=== PATIENT | female | born 2000 | race Hispanic/Latino ===

== ENCOUNTER 2020-04-26 18:50 | Emergency (ER) | payer OTHER ==
[~2020-04-26] VITALS: Ht 162.6 cm; Wt 57.7 kg
[2020-04-26 18:50] VITALS: BP 119/70
[2020-04-26] MEDS ORDERED: AMOX500C PO (19:01)
[2020-04-26] MEDS ORDERED: LIDOCAINE 1% MDV 20ML VIAL SC ONE (21:00)
[2020-04-26] MEDS ORDERED: CEPHALEXIN 500 MG CAP PO ONE (21:15)
[2020-04-26] MEDS ORDERED: CEPH500C PO (21:15)
[2020-04-26] MEDS ORDERED: NAPROXEN 250 MG TAB PO ONE (21:15)
[2020-04-26] MEDS ORDERED: NAPR-837 PO (21:15)
== END 2020-04-26 21:28 | disposition home or self-care (01) ==
LOC: M ED 18:50
DX: L72.3 Sebaceous cyst (principal)

== ENCOUNTER 2020-06-13 09:12 | Emergency (ER) | payer OTHER ==
[~2020-06-13] VITALS: Ht 162.6 cm; Wt 56.3 kg
[~2020-06-13 09:12] MED LIST: AMOX500C PO; CEPH500C PO; NAPR-837 PO
[2020-06-13] MEDS ORDERED: KETOROLAC 30 MG/ML 1ML VIAL IM ONE (10:15)
[2020-06-13 11:10] LABS: BASO % 0.5 % (0.0-1.0); EOS % 0.4 % (0.0-3.0); HEMATOCRIT 35.2 % (36.0-47.0); HEMOGLOBIN 11.4 g/dl (12.0-15.5); LYMPH # 1.4 10^3/uL (1.5-5.0); LYMPH % 16.8 % (24.0-44.0); MEAN CORPUSCULAR HEMOGLOBIN 27.3 pg (27.0-33.0); MEAN CORPUSCULAR HGB CONC 32.4 g/dl (32.0-36.5); MEAN CORPUSCULAR VOLUME 84.4 fl (80.0-96.0); MONO # 0.8 10^3/uL (0.0-0.8); MONO % 9.8 % (2.0-8.0); NEUTROPHILS # 6.1 10^3/uL (1.5-8.5); NEUTROPHILS % 72.1 % (36.0-66.0); PLATELET COUNT, AUTOMATED 330 10^3/uL (150-450); RED BLOOD COUNT 4.17 10^6/uL (4.00-5.40); WHITE BLOOD COUNT 8.4 10^3/uL (4.0-10.0)
[2020-06-13 11:54] LABS: BLOOD UREA NITROGEN 9 MG/DL (7-18); CALCIUM LEVEL 8.7 MG/DL (8.5-10.1); CARBON DIOXIDE LEVEL 25 MEQ/L (21-32); CHLORIDE LEVEL 109 MEQ/L (98-107); CREATININE FOR GFR 0.54 MG/DL (0.55-1.30); GLOMERULAR FILTRATION RATE > 60.0 (>60); GLUCOSE, FASTING 90 MG/DL (70-100); POTASSIUM SERUM 3.9 MEQ/L (3.5-5.1); SODIUM LEVEL 140 MEQ/L (136-145)
[2020-06-13] MEDS ORDERED: BACTRIM 160MG/800MG DS TAB PO ONE (12:15)
[2020-06-13] MEDS ORDERED: PERCOCET 5MG/325MG TAB PO ONE (12:15)
[2020-06-13 13:44] LABS: HCG, SERUM QUALITATIVE NEGATIVE (NEGATIVE)
[2020-06-13 14:35] VITALS: BP 115/63
[2020-06-13] MEDS ORDERED: PERC5TAB12 PO (15:04)
[2020-06-13] MEDS ORDERED: KETO10TAB PO (15:04)
[2020-06-13] MEDS ORDERED: BACT800T5 PO (15:04)
== END 2020-06-13 15:10 | disposition home or self-care (01) ==
LOC: M ED 09:12
DX: N76.4 Abscess of vulva (principal)
CPT/HCPCS: 36415; 80048; 84703; 85025; 87070; 87077; 87205; 96372; 99283; J1885